=== PATIENT | female | born 1970 | race Caucasian/White ===

== ENCOUNTER 2017-11-01 15:53 | Inpatient (IN) | payer OTHER, MEDICAID ==
[~2017-11-01] VITALS: Ht 170.2 cm; Wt 123.5 kg
[2017-11-01] MEDS ORDERED: SODIUM CHLORIDE FLUSH 10ML SYR IVF ONE (16:00)
[2017-11-01 16:23] LABS: BASOPHILS # (AUTO) 0.04 x10^3/uL (0-0.1); BASOPHILS % (AUTO) 0 % (0-1); EOSINOPHILS # (AUTO) 0.16 x10^3/uL (0-0.4); EOSINOPHILS % (AUTO) 2 % (1-7); LYMPHOCYTES # (AUTO) 3.01 x10^3/uL (1-3.4); LYMPHOCYTES % (AUTO) 28 % (22-44); MD NO; MEAN CORPUSCULAR HEMOGLOBIN 29.2 pg (27.0-34.8); MEAN CORPUSCULAR HGB CONC 34.2 g/dL (32.4-35.8); MEAN CORPUSCULAR VOLUME 85.4 fL (80-100); MEAN PLATELET VOLUME 7.7 fL (7.4-10.4); MONOCYTES # (AUTO) 0.41 x10^3/uL (0.2-0.8); MONOCYTES % (AUTO) 4 % (2-9); NEUTROPHILS # (AUTO) 7.23 x10^3/uL (1.8-6.8); NEUTROPHILS % (AUTO) 67 % (42-75); PLATELET COUNT 329 x10^3/uL (130-400); RED BLOOD COUNT 5.41 x10^6/uL (3.82-5.3); RED CELL DISTRIBUTION WIDTH 13.6 % (9.6-15.2)
[2017-11-01] MEDS ORDERED: HYDROmorphone 2 MG/ML, 1ML ONE ×2 (16:38→18:55)
[2017-11-01] MEDS: HYDROmorphone 2 MG/ML, 1ML IVPush PRN ×2 (16:40→19:01)
[2017-11-01 17:01] LABS: ALANINE AMINOTRANSFERASE 66 U/L (12-78); ALBUMIN 3.6 g/dL (3.4-5.0); ALKALINE PHOSPHATASE 117 U/L (45-117); ANION GAP 12 mmol/L (5-15); BILIRUBIN,TOTAL 0.5 mg/dL (0.2-1.0); CALCIUM 8.8 mg/dL (8.5-10.1); CHLORIDE 108 mmol/L (98-107); CREATININE 0.86 mg/dL (0.55-1.02); TOTAL PROTEIN 7.1 g/dL (6.4-8.2)
[2017-11-01 17:05] LABS: MICROSCOPIC AUTO
[2017-11-01 17:10] LABS: CULTURE INDICATED? YES
[2017-11-01] MEDS ORDERED: OMNIPAQUE 350 MG/ML, 100ML BOTTLE ONE (17:43)
[2017-11-01] MEDS ORDERED: ONDANSETRON ODT 4 MG ONE (18:55)
[2017-11-01] MEDS ORDERED: ONDANSETRON ODT 8 MG PO ONE (19:00)
[2017-11-01] MEDS ORDERED: TAMSULOSIN 0.4 MG CAP.ER.24H PO ONE (19:30)
[2017-11-01] MEDS ORDERED: TAMSULOSIN 0.4 MG CAP.ER.24H ONE (19:38)
[2017-11-01] MEDS ORDERED: HYDROcodone/APAP 5/325 TABLET PO PRN (20:30)
[2017-11-01] MEDS ORDERED: ONDANSETRON ODT 4 MG PO PRN (20:30)
[2017-11-01] MEDS ORDERED: BISACODYL 10 MG SUPP PR PRN (20:30)
[2017-11-01] MEDS ORDERED: hydrALAzine 20 MG/ML, 1ML IVPush PRN (20:30)
[2017-11-01] MEDS ORDERED: DOCUSATE 100 MG CAPSULE PO PRN (20:30)
[2017-11-01] MEDS ORDERED: LABETALOL 5MG/ML, 20ML IVPush PRN (20:30)
[2017-11-01] MEDS ORDERED: PROMETHAZINE 25 MG/ML, 1ML IM PRN (20:30)
[2017-11-01] MEDS ORDERED: POLYETHYLENE GLYCOL 17 GM PACKET PO PRN (20:30)
[2017-11-01] MEDS ORDERED: KETOROLAC 30 MG/1 ML IVPush ONE (20:30)
[2017-11-01] MEDS ORDERED: morphine SULFATE 10 MG/ML, 1ML IVPush PRN (20:30)
[2017-11-01] MEDS ORDERED: ONDANSETRON 2MG/ML, 2ML IVPush PRN (20:30)
[2017-11-01] MEDS ORDERED: KETOROLAC 30 MG/1 ML ONE (20:43)
[2017-11-01 21:08] LABS: FREE T4 (FREE THYROXINE) 0.99 ng/dL (0.76-1.46); THYROID STIMULATING HORMONE 1.04 mIU/L (0.358-3.740)
[2017-11-01 21:21] LABS: HEMOGLOBIN A1C 7.1 % (4.2-6.3)
[2017-11-01 21:30] VITALS: BP 117/82
[2017-11-01] MEDS: CEFTRIAXONE 2 GM in SODIUM CHLORIDE 0.9% 50 ML IV SCH (22:40)
[2017-11-01] MEDS: SODIUM CHLORIDE 0.9% 1,000 ML IV SCH (22:40)
[2017-11-01] MEDS: HYDROcodone/APAP 5/325 TABLET PO PRN (22:57)
[2017-11-01] MEDS ORDERED: CETI10CA PO (23:06)
[2017-11-01] MEDS ORDERED: [UNRECOGNIZED DRUG - OTHER] INTUTE (23:06)
[2017-11-02 02:42] VITALS: BP 123/78
[2017-11-02] MEDS: HYDROcodone/APAP 5/325 TABLET PO PRN ×3 (03:00→23:55)
[2017-11-02 05:33] LABS: ALBUMIN 3.1 g/dL (3.4-5.0); ANION GAP 10 mmol/L (5-15); CALCIUM 8.3 mg/dL (8.5-10.1); CHLORIDE 108 mmol/L (98-107)
[2017-11-02 05:38] LABS: ALANINE AMINOTRANSFERASE 55 U/L (12-78); ALKALINE PHOSPHATASE 97 U/L (45-117); BILIRUBIN,TOTAL 0.6 mg/dL (0.2-1.0); CHOL/HDL RATIO 6.1; CHOLESTEROL, TOTAL 176 mg/dL (140-239); CREATININE 0.76 mg/dL (0.55-1.02); HDL CHOL % 16 % (28-40); HDL CHOLESTEROL (DIRECT) 29 mg/dL (40-60); LDL CHOLESTEROL,CALCULATED 111 mg/dL (54-169); LDL/HDL RATIO 3.8 (0.5-3.0); TOTAL PROTEIN 6.3 g/dL (6.4-8.2); TRIGLYCERIDES 182 mg/dL (50-200); VLDL CHOLESTEROL 36 mg/dL (0-25)
[2017-11-02 05:42] LABS: BASOPHILS # (AUTO) 0.05 x10^3/uL (0-0.1); BASOPHILS % (AUTO) 0 % (0-1); EOSINOPHILS # (AUTO) 0.08 x10^3/uL (0-0.4); EOSINOPHILS % (AUTO) 1 % (1-7); LYMPHOCYTES # (AUTO) 3.69 x10^3/uL (1-3.4); LYMPHOCYTES % (AUTO) 27 % (22-44); MD NO; MEAN CORPUSCULAR HEMOGLOBIN 28.8 pg (27.0-34.8); MEAN CORPUSCULAR HGB CONC 33.6 g/dL (32.4-35.8); MEAN CORPUSCULAR VOLUME 85.8 fL (80-100); MEAN PLATELET VOLUME 7.9 fL (7.4-10.4); MONOCYTES # (AUTO) 1.09 x10^3/uL (0.2-0.8); MONOCYTES % (AUTO) 8 % (2-9); NEUTROPHILS % (AUTO) 64 % (42-75); PLATELET COUNT 296 x10^3/uL (130-400); RED BLOOD COUNT 4.71 x10^6/uL (3.82-5.3); RED CELL DISTRIBUTION WIDTH 13.5 % (9.6-15.2)
[2017-11-02] MEDS: SODIUM CHLORIDE 0.9% 1,000 ML IV SCH (06:38)
[2017-11-02 07:24] VITALS: BP 113/75
[2017-11-02 11:48] VITALS: BP 125/79
[2017-11-02 12:25] VITALS: BP 128/79
[2017-11-02] MEDS ORDERED: KETOROLAC 30 MG/1 ML ONE (14:59)
[2017-11-02] MEDS ORDERED: EPHEDRINE 50 MG/ML, 1ML ONE (14:59)
[2017-11-02] MEDS ORDERED: MIDAZOLAM 1 MG/ML, 2ML ONE (15:41)
[2017-11-02] MEDS ORDERED: FENTANYL PF 100 MCG/2ML ONE ×2 (15:41→16:22)
[2017-11-02] MEDS ORDERED: CEFAZOLIN 1,000 MG ONE (16:23)
[2017-11-02] MEDS ORDERED: PROPOFOL 10 MG/ML, 20ML ONE (16:23)
[2017-11-02] MEDS ORDERED: SUCCINYLCHOLINE 20 MG/ML, 10ML ONE (16:23)
[2017-11-02] MEDS ORDERED: NEOSTIGMINE 1 MG/ML, 10ML ONE (16:23)
[2017-11-02] MEDS ORDERED: ROCURONIUM 10MG/ML,5ML ONE (16:23)
[2017-11-02] MEDS ORDERED: DEXAMETHASONE 4 MG/ML, 1ML ONE (16:23)
[2017-11-02] MEDS ORDERED: GLYCOPYRROLATE 0.2MG/1ML, 5ML ONE (16:23)
[2017-11-02] MEDS ORDERED: ONDANSETRON 2MG/ML, 2ML ONE (16:23)
[2017-11-02] MEDS ORDERED: HALOPERIDOL 5 MG/ML IV PRN (16:30)
[2017-11-02] MEDS ORDERED: HYDROmorphone 1 MG/ML, 1ML IV PRN (16:30)
[2017-11-02] MEDS ORDERED: PROCHLORPERAZINE 5 MG/ML, 2ML IV PRN (16:30)
[2017-11-02] MEDS ORDERED: FENTANYL PF 100 MCG/2ML IV PRN (16:30)
[2017-11-02] MEDS ORDERED: hydrALAzine 20 MG/ML, 1ML IV PRN (16:30)
[2017-11-02] MEDS ORDERED: DIPHENHYDRAMINE 50 MG/ML, 1ML IVPush PRN (16:30)
[2017-11-02] MEDS ORDERED: LABETALOL 5MG/ML, 20ML IV PRN (16:30)
[2017-11-02] MEDS ORDERED: MEPERIDINE/PF 25MG/0.5ML IVPush PRN (16:30)
[2017-11-02] MEDS ORDERED: MEPERIDINE/PF 50 MG/ML ONE (17:36)
[2017-11-02] MEDS ORDERED: OMNIPAQUE 350 MG/ML, 50 ML BOTTLE ONE (18:38)
[2017-11-02] MEDS: PHENAZOPYRIDINE 200 MG TABLET PO SCH (19:52)
[2017-11-02 20:07] VITALS: BP 153/48
[2017-11-02] MEDS: CEFTRIAXONE 2 GM in SODIUM CHLORIDE 0.9% 50 ML IV SCH (22:09)
[2017-11-02 23:33] VITALS: BP 113/61
[2017-11-03 03:51] VITALS: BP 110/59
[2017-11-03] MEDS: HYDROcodone/APAP 5/325 TABLET PO PRN ×2 (04:03→08:12)
[2017-11-03] MEDS: PHENAZOPYRIDINE 200 MG TABLET PO SCH ×2 (08:13→16:55)
[2017-11-03 09:06] VITALS: BP 131/67
[2017-11-03] MEDS ORDERED: MECLIZINE 12.5 MG TABLET PO PRN (11:00)
[2017-11-03 15:30] VITALS: BP 116/63
[2017-11-03] MEDS ORDERED: PHEN-583 PO (17:17)
[2017-11-03] MEDS ORDERED: PHEN-418 PO (17:17)
[2017-11-03] MEDS ORDERED: TAMS-11 PO (17:18)
[2017-11-03] MEDS ORDERED: ACET650S21 PO (17:18)
[2017-11-03] MEDS ORDERED: ACETAMINOPHEN 325 MG TABLET PO PRN (17:30)
[2017-11-03] MEDS ORDERED: CEFD300C37 PO (17:37)
[2017-11-03 18:31] VITALS: BP 136/83
[2017-11-04] MEDS ORDERED: TAMSULOSIN 0.4 MG CAP.ER.24H PO SCH (09:00)
== END 2017-11-03 18:45 | disposition home or self-care (01) | DRG 669 ==
LOC: ED 19:49 → EDIP 20:03 → 4NOR 21:13
PROVIDERS: ADMIT Internal Medicine; ATTEND Internal Medicine
PROC: 0TC68ZZ Extirpation of Matter from Right Ureter, Via Natural or Artificial Opening Endoscopic (ICD-10-PCS; 2017-11-02)
PROC: BT1D1ZZ Fluoroscopy of Right Kidney, Ureter and Bladder using Low Osmolar Contrast (ICD-10-PCS; 2017-11-02)
PROC: 0T768DZ Dilation of Right Ureter with Intraluminal Device, Via Natural or Artificial Opening Endoscopic (ICD-10-PCS; principal; 2017-11-02 14:30)
DX: N13.6 Pyonephrosis (principal); Z68.41 Body mass index [BMI] 40.0-44.9, adult; D18.03 Hemangioma of intra-abdominal structures; E11.9 Type 2 diabetes mellitus without complications; E66.9 Obesity, unspecified; E78.5 Hyperlipidemia, unspecified; R31.9 Hematuria, unspecified; I10 Essential (primary) hypertension; N28.1 Cyst of kidney, acquired; Z81.8 Family history of other mental and behavioral disorders; Z82.49 Family history of ischemic heart disease and other diseases of the circulatory system; Z83.3 Family history of diabetes mellitus; Z91.19 Patient's noncompliance with other medical treatment and regimen; Z90.49 Acquired absence of other specified parts of digestive tract
CPT/HCPCS: 36415; 74420; 99285; J3490; 74178; 74183; 80053; 80061; 81001; 82360; 82962; 83036; 83735; 84439; 84443; 84703; 85025; 87086; 88300; 96374; 96376; G0378; J0690; J0696; J1100; J1170; J1885; J2175; J2250; J2405; J2704; J2710; J3010; Q0162; Q9967; C1758; C2617; J0330; J7030